=== PATIENT | male | born 1930 | race Caucasian/White ===

== ENCOUNTER 2018-08-28 10:40 | Day surgery (SDC) | payer OTHER ==
--- NOTE | 2018-08-27 17:06 | EKG ---
Test Date: 2018-08-27 Test Time: 09:27:21 Road Design Draftsperson: ASHWIN MEASUREMENT RESULTS: Intervals: Rate: 64 ME: 152 QRSD: 116 QT: 420 QTc: 433 Cowan: P: 64 ME: 152 QRS: 71 T: 44 INTERPRETIVE STATEMENTS: Normal sinus rhythm Right bundle branch block Abnormal ECG Compared to ECG 05/27/2016 07:37:03 No significant changes Electronically Signed On 08-27-18 17:05:16 CDT by Reno Garcia
[2018-08-28] MEDS ORDERED: Ringers Lactate 1,000 ML IV ONE (11:07)
[2018-08-28] MEDS ORDERED: PROPOFOL 200 MG/20 ML VIAL IV ONE (12:05)
[2018-08-28] MEDS ORDERED: FENTANYL CITR 100 MCG/2 ML ONE (12:05)
[2018-08-28] MEDS ORDERED: LIDOCAINE 1% MPF 2 ML AMPULE ONE (12:07)
[2018-08-28] MEDS ORDERED: LIDOCAINE 1% W/EPI 1:100,000 MDV 50 ML VIAL ONE (12:20)
[2018-08-28] MEDS ORDERED: EPHEDRINE SULF 50 MG/ML VIAL ONE (13:59)
[2018-08-28] MEDS ORDERED: MINERAL OIL, LITE 10 ML VIAL ONE (14:15)
--- NOTE | 2018-08-28 15:09 | P.BOP ---
Preoperative diagnosis: BBC nose and right ear Postoperative diagnosis: same Primary procedure: WLE nose 1.5cm, ear 5 x 3 cm Secondary procedure: skin graft from L arm to nose Respiratory Assistant: NONE,NONE Estimated blood loss: 5ml Specimen: nose BCC, ear BCC, 12 to 6 margin, final 3 to 6 margin Anesthesia: General Complications: None Implants: none Fluids & blood products: crystalloid 800ml Transferred to: Recovery Room Condition: Good
[2018-08-28 16:48] VITALS: BP 139/57; TEMP 97.1; O2SAT 97
--- NOTE | 2018-08-30 01:03 | OP ---
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 Procedure: Excision of right ear, size of defect 5 x 3.5 cm, with primary closure and excision of ba dariusz cell carcinoma of the nose, diameter 1.5 cm, with dermal autograft, donor site was left forearm. Indication For Procedure: Mr. Frietas is an 88-year-old, who presented to his aging room hand with the aforementioned lesions. Pathology was confirmed by biopsy from the aging room hand and the patient was referred to the clinic for definitive treatment. The risks, benefits, and alternatives to procedure were discussed with the patient and his , and they desired to proceed. Description Of Procedure: The patient was brought to the operating room. He was placed under monito red anesthesia care. After administration of a small dose of propofol, the nose and the right ear we re injected with lidocaine with epinephrine. During sterile preparation with Betadine, the patient w as moving, attempting to touch the sterile area, and was not able to easily follow directions. The d ecision was made to convert from monitored anesthesia to general anesthetic and an LMA was placed by the nurse liquid compounder. The face, neck, and arm were then prepped with Betadine and draped in a steri le fashion. The nose was addressed first. The tip of the nose showed a healed biopsy site with resi dual gross tumor. The left nasal tip was noted to have moderate area of scar from prior lesion. The scalpel was used to incise full-thickness through the skin with a narrow gross margin. A suture was placed at the superior most aspect marking 12 o'clock and the specimen was elevated off the underlyi ng tissues including the lower lateral cartilages and sent to pathology for frozen section. Hemostas is was obtained using electrocautery and attention was turned to the right ear. The posterior aspect of the pinna demonstrated a 3-4 mm ulcerated lesion and a vertical fusiform incision was designed ar ound this lesion. A suture was placed at the superior most aspect marking 12 o'clock and the specime n was sent to pathology for frozen section analysis. The nasal margins were noted to be negative and plan for closure was made. The defect was round and 1.5 x 1.5 cm. Closure by secondary intention was felt to be likely to result in prolonged healing an d poor cosmetic result, and risk of prolonged exposure of nasal cartilages with potential for contrac ture resulting in deformity or poor nasal function. The defect was somewhat large for a rotational f lap on the nose. I had previously discussed with the patient regarding a paramedian forehead flap an d he deferred that option due to concerns for secondary procedure and overall cosmetic morbidity of t he procedure during the healing process. The patient was noted to be relatively thin skinned on the tip of the nose and the skin graft was felt to be the patient's best option. The forearm was examine d and had similarly thin skin. The area of the forearm was injected with lidocaine with epinephrine and the skin graft was harvested using a scalpel. The skin graft was secured to the nose in a 6 poin t fashion using silk sutures. A cotton ball soaked in mineral oil was applied over the skin graft an d secured using the silk sutures to apply compression and aid in skin graft adherence. The defect wa s undermined and closed in an interrupted fashion using 4-0 Vicryl with 4-0 plain gut sutures. The right ear was noted to have a positive margin in the 3 to 6 o'clock, suspect a new 12 to 3 to 6 o 'clock margin was cut, marked at the 12 o'clock aspect and sent to Pathology for frozen section jena sis. This new section was noted to have persistent, but focal area of concern in the 3-6 region and a new 3-6 margin was collected. This final margin was marked with a suture at 6 o'clock and sent to pathology for frozen section analysis. Final margin was negative and the defect was examined. A sma ll corner of tissue around the 3 o'clock margin was excised in order to provide a more uniform shape to the defect. The defect was noted to be quite large, 5 x 3.5 cm, encompassing the majority of the posterior surface of the pinna. Reconstructive options were considered. Although the skin graft wou ld work well in this area, it would require an additional donor site and I thought this would not be in the patient's wishes. Therefore, the lateral portion of the helix was excised in order to allow t he anterior skin to be fold over a portion of the defect and allowing closure of this in a primary fa shion. The skin was secured with 4-0 deep Vicryl sutures and then closed using little. All incisio ns were dressed with triple antibiotic ointment and a light dressing. The patient was then returned to care of Anesthesia for awakening and extubation in the operating room, which proceeded without dif ficulty. Disposition: The patient will be discharged home later today in the care of his and daughter. Local care is discussed and the patient will follow up with Dr. Rogers in 1 to 2 weeks for removal o f sutures and bolster. TITUS/KAILEY Voice ID: [id number] Report ID: [id number]
== END 2018-08-28 16:56 | disposition home or self-care (01) ==
LOC: OR 10:40
PROVIDERS: ATTEND Otolaryngology
PROC: 0HB1XZX Excision of Face Skin, External Approach, Diagnostic (ICD-10-PCS; 2018-08-28)
PROC: 0HB2XZX Excision of Right Ear Skin, External Approach, Diagnostic (ICD-10-PCS; principal; 2018-08-28 12:45)
DX: C44.311 Basal cell carcinoma of skin of nose (principal); C44.212 Basal cell carcinoma of skin of right ear and external auricular canal; Z87.891 Personal history of nicotine dependence; Z79.899 Other long term (current) drug therapy
CPT/HCPCS: 11642; 15135; 11646; 12052; 93005; 88331; 88332; 88305; J2704; J3010; J2001